=== PATIENT | male | born 1940 | race Caucasian/White ===

== ENCOUNTER → 2018-06-06 | Outpatient (CLI) | payer MEDICARE, OTHER ==
[~2018-06-06] MED LIST: BIMOD OP; CEP500 PO; CYCL10TA29 PO; DOXY-179 PO; HYDR-653 PO; LISI-355 PO; MOEX1TAB PO; NAPR220C12 PO; OMEP-125 PO; ONDA4TAB PO; PANT40TA65 PO; PRED-314 PO; TIMO5DRO3 OP; UNIRETIC PO
--- NOTE | 2018-06-09 22:31 | RT HOLTER TEST ---
FACILITY: [facility] - [place] PATIENT NAME: RAMAN FERREIRA : [id number] MR: [id number] V: [id number] EXAM DATE: ORDERING PHYSICIAN: NOAM WAN TECHNOLOGIST: HÉCTOR Krishnan-up date: 2018-06-06 09:09:00 Duration: 47:59:00 Test Indications: PALPITATIONS Medications: N/A [id number] QRS complexes 28 Ventricular ectopics which represent <1 % of total QRS comp. 398 Supraventricular ectopics which represent <1 % of total QRS comp. * Paced QRS complexes which represent % of total QRS comp. VENTRICULAR ECTOPY 28 Isolated 0 Bigeminal Cycles 0 Couplets 0 Runs 0 Beats in Runs * Beats LONGEST at * BPM at :: -- * Beats FASTEST at * BPM at :: -- SUPRAVENTRICULAR ECTOPY 390 Isolated 4 Couplets 0 Runs 0 Beats in Runs * Beats LONGEST at * BPM at :: -- * Beats FASTEST at * BPM at :: -- HEART RATES 44 MIN at 06:43:24 2018-06-08 82 AVG 141 MAX at 18:54:46 2018-06-06 LONGEST RR 1.624 secs at 01:45:16 2018-06-07 S-T LEVELS Channel 1 -12.800 mm MIN at 09:09:00 2018-06-06 -12.800 mm MAX at 09:09:00 2018-06-06 Channel 2 -12.800 mm MIN at 09:09:00 2018-06-06 -12.800 mm MAX at 09:09:00 2018-06-06 Channel 3 -12.800 mm MIN at 09:09:00 2018-06-06 -12.800 mm MAX at 09:09:00 2018-06-06 The patient had sinus tachycardia or borderline tachycardia with symptoms. The patient was predomina ntly in a sinus rhythm with rare ventricular ectopy (VE) and occasional supraventricular ectopy (SVE). Most of the VE and SVE were asymptomatic, but there was one symptom event that correlated with an SVE. Confirmed by OLIVIER WOODSON ([id number]) on 06/09/2018 10:31:15 PM Referred By: Overread By: OLIVIER WOODSON
== END ==
LOC: RESP 06:59
PROVIDERS: ATTEND Family Medicine
DX: R00.0 Tachycardia, unspecified (principal)
CPT/HCPCS: 93225; 93226

== ENCOUNTER 2018-09-18 01:58 | Day surgery (SDC) | payer MEDICARE, OTHER ==
[2018-09-18] VITALS (7 sets, daily range): BP systolic 87–131; BP diastolic 61–91
[~2018-09-18] VITALS: Ht 182.9 cm; Wt 84.4 kg
[2018-09-18] MEDS ORDERED: PROPOFOL EMUL(*) 10MG/ML 20 ML 40 ML ONE (07:17)
[2018-09-18] MEDS ORDERED: LIDOCAINE/SOD BICARB 8.4% SYR ID ONE (07:55)
[2018-09-18] MEDS ORDERED: NORMOSOL R SOLN(*) 1000 ML BAG 1,000 ML IV PRN (07:55)
== END 2018-09-18 09:45 | disposition home or self-care (01) ==
LOC: OR 01:58
PROVIDERS: ATTEND Family Medicine
DX: Z12.11 Encounter for screening for malignant neoplasm of colon (principal); K57.30 Diverticulosis of large intestine without perforation or abscess without bleeding; Z86.010 Personal history of colon polyps
CPT/HCPCS: 00812; G0121; J2704